=== PATIENT | female | born 1930 | race Caucasian/White ===

== ENCOUNTER → 2016-07-15 | Outpatient (CLI) | payer MEDICARE ==
[~2016-07-15] MED LIST: ALBUS PO; ALPH300T PO; ESZO3TAB4 PO; FURO1TAB93 PO; GABA400 PO; POTA20PA PO; PRAD150C PO; VITA20002 PO; Z.0.OXYGEN INH
--- NOTE | 2016-08-13 13:11 | RSPPFT ---
DATE OF PROCEDURE: 07/15/16 COMMENTS: VOLUMES DYNAMIC: FVC and FEV1 mildly reduced. STATIC: RV, VTG mildly increased; TLC normal.. FLOWS: FEV1% mildly reduced; FEF 25-75 severely reduced. DIFFUSION: Normal. FLOW VOLUME LOOP: Pattern of variable intrathoracic airways obstruction. IMPRESSION: Mild obstructive ventilatory defect with no reduction in diffusion but with moderate hyperinflation. Airways resistance is mildly increased and there is no significant change post-bronchodilator.
== END ==
LOC: HRSP 10:35
PROVIDERS: ATTEND Internal Medicine
DX: J44.9 Chronic obstructive pulmonary disease, unspecified (principal)
CPT/HCPCS: 94060; 94620; 94726; 94729

== ENCOUNTER 2017-05-04 12:39 | Day surgery (SDC) | payer MEDICARE ==
[2017-05-04] MEDS ORDERED: IOHEXOL 300 MG/ML 50 ML BTL (for RAD DIAG) OTHER ONE (12:40)
[2017-05-04 13:50] VITALS: BP 168/77; PULSE 71; RESP 20; TEMP 98; O2SAT 93
[2017-05-04] MEDS ORDERED: APIX2.5T PO (13:54)
[2017-05-04] MEDS ORDERED: UMEC1AER INH (13:54)
[2017-05-04] MEDS ORDERED: TRIAMCINOLONE ACETONIDE 40 MG/ML VIAL ONE (14:50)
--- NOTE | 2017-05-04 15:35 | PD.RAD ---
Post Procedure Progress Note Pre Procedure Diagnosis: (1) Spondylolisthesis, lumbar region (2) Lumbar degenerative disc disease (3) Lumbar spondylolysis Post Procedure Diagnosis: (1) Lumbar spondylolysis (2) Spondylolisthesis, lumbar region (3) Lumbar degenerative disc disease Procedure Date: May 04, 2017 Supervising Radiologist: Valentin Castaneda Estimated blood loss: none Anesthesia: Local Plan of Activity Patient to Unit: ROPU Patient Condition: Good Additional Comments: 86 y/o well known to the IR service. With recurrent low back pain and bilateral radiculopathy. Pt has known spinal stenosis. Epidural steroid injection preformed at L3/4 level Pt. tolerated the procedure well PT advised to continue holding Elquis for 24 more hours. See PACS Report for procedural detail/treatment Valentin Castaneda MD May 04, 2017 15:35
[2017-05-04 16:00] VITALS: BP 169/89; PULSE 89; RESP 16; TEMP 97.9; O2SAT 90
[2017-05-04 16:20] VITALS: BP 159/85; PULSE 86; RESP 16; O2SAT 90
--- NOTE | 2017-05-05 08:16 | RADRPT ---
EXAM DATE/TIME: 05/04/2017 16:00 [facility] COMPARISON: EPI INJ LUMBSACRAL/CAUD FLGUID, September 10, 2015, 15:18. INDICATIONS : Patient with hx of low back pain and pain down right leg. MEDICAL HISTORY : 1.HTN 2. ESRD 3. COPD 4. emphysema 5. A Fib 6. Asthma SURGICAL HISTORY : 1.. Left total knee replacment 2. Bilateral catqaract extraction 3. Cholecytectomy 4. Bladder sling ENCOUNTER: Initial ACUITY: 4 - 6 months PAIN SCORE: 2/10 LOCATION: Right buttock down legs FLUORO TIME: 7.4 minutes IMAGE SERIES: 6 CONTRAST: 2 cc Omnipaque (iohexol) 300 ACCESS LEVEL: L 3/4 MEDICATIONS: 1.) 1 cc triamcinolone (Kenalog) IA 2.) 3 cc IA saline 3.) 1 cc Lidocaine IA RESPONSE: Pre procedure pain level was 2/10. Post procedure pain level was 1/10. PROCEDURE : 1. Fluoroscopically guided epidural injection. 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 The patient has undergone previous epidural steroid injection at the L3/4 level with excellent results. The patient was essentially pain free for greater than one year. The patient returns for rep eat injection. The risks, benefits and alternatives to the procedure were explained and verbal and wr itten consent was obtained. The site was prepped in sterile fashion. Full sterile technique was use d, including cap, mask, sterile gloves and gown and a large sterile sheet. Hand hygiene and 2% chlor hexidine and/or betadine/alcohol prep was utilized per protocol for cutaneous antisepsis. The skin a nd subcutaneous tissues were infiltrated with local anesthetic solution. With fluoroscopic guidance the targeted epidural space was localized and positive contrast was inject ed to confirm epidural spread. Following this the prescribed medication was injected surrounding the space. The patient's preprocedure pain and post procedure pain levels were recorded. The patient to lerated the procedure well and was discharged without incident. CONCLUSION: Uncomplicated fluoroscopically guided epidural injection as above. Valentin Castaneda MD on May 05, 2017 at 8:13 Board Certified Radiologist. This report was verified electronically.
== END 2017-05-04 17:00 | disposition home or self-care (01) ==
LOC: HROP 12:39 → HRIP 12:43 → HROP 17:00
PROVIDERS: ATTEND Internal Medicine
DX: M43.16 Spondylolisthesis, lumbar region (principal); M51.36 Other intervertebral disc degeneration, lumbar region; I12.0 Hypertensive chronic kidney disease with stage 5 chronic kidney disease or end stage renal disease; N18.6 End stage renal disease; J44.9 Chronic obstructive pulmonary disease, unspecified
CPT/HCPCS: 62323; J3301; Q9967